=== PATIENT | male | born 1940 | race Caucasian/White ===

== ENCOUNTER 2022-07-15 15:58 | Inpatient (IN) ==
[2022-07-15] MEDS ORDERED: SODIUM CHLORIDE 0.9% 1,000 ML IV STA (16:37)
[2022-07-15 17:16] LABS: Basophils % 0.1 % (0.0-0.8); Eosinophils # 0.1 10*3/uL (0.0-0.87); Eosinophils % 0.8 % (0.00-10.9); Immature Granulocytes % 0.4 %; Immature Granulocytes Absolute 0.03 #; Lymphocytes # 1.3 10*3/uL (1.4-4.0); Lymphocytes % 17.4 % (21.2-54.2); Mean Corpuscular HGB Conc 32.5 GM/DL (32-36); Mean Corpuscular Volume 92.4 FL (87-102); Mean Platelet Volume 10.1 FL (9.6-12.0); Monocytes # 0.5 10*3/uL (0.11-0.8); Monocytes % 7.1 % (1.7-12.7); Neutrophils % 74.2 % (38.7-73.9); Platelet Count 201 T/CUMM (130-400); Red Blood Count 4.33 MC/CUMM (3.8-5.5); Red Cell Distribution Width 13.2 % (9.3-17.3); White Blood Count 7.3 T/CUMM (4-12)
[2022-07-15 17:26] LABS: INR 0.9; Partial Thromboplastin Time 27.2 SECS (23.7-32.9)
[2022-07-15 17:38] LABS: Albumin 2.1 G/DL (3.4-5.0); Bilirubin,Total 0.5 MG/DL (0.20-1.00); Calcium 8.3 MG/DL (8.5-10.1); Osmolality,Calculated 273.7 MOS/KG (273-304); Potassium 4.6 MMOL/L (3.5-5.1)
[2022-07-15 17:43] LABS: Hyaline Casts,Urine 4 /LPF (0-3); Mucus,Urine Occasional /LPF (Occasional); RBC,Urine 1 /HPF (0-4)
[2022-07-15 17:44] LABS: Bilirubin,Urine Negative (Negative); Blood, Urine Trace mg/dL (Negative); Glucose,Urine (UA) >=1000 mg/dL (Negative); Ketones,Urine Negative (Negative); Nitrite,Urine Negative (Negative); Protein,Urine 100 mg/dL (Negative); Urine Appearance Clear (Clear); Urine Color Yellow (Yellow); Urine Urobilinogen 0.2 eU/dL (<2.0)
[2022-07-15] MEDS ORDERED: MAGNESIUM SULF RIDER 2 GM/50 ML PREMIX IV ONE (18:31)
[2022-07-15] MEDS ORDERED: GLUCAGON 1 MG VIAL IM PRN (18:42)
[2022-07-15] MEDS ORDERED: ONDANSETRON 4 MG/2 ML VIAL IV PRN (18:42)
[2022-07-15] MEDS ORDERED: DEXTROSE 10% 250 ML BAG IV PRN (18:42)
[2022-07-15] MEDS ORDERED: ACETAMINOPHEN 325 MG TABLET PO PRN (18:42)
[2022-07-15 19:13] LABS: Thyroid Stimulating Hormone 1.1 uIU/ml (0.358-3.74)
[2022-07-15] MEDS ORDERED: MORPHINE 2 MG/1 ML SYRINGE IV PRN (19:48)
[2022-07-15] MEDS ORDERED: ENOXAPARIN 40 MG/0.4 ML SYRINGE SUBCUT SCH (21:00)
[2022-07-15] MEDS ORDERED: ASPIRIN EC 325 MG TABLET PO SCH (21:00)
[2022-07-15] MEDS: PRAVASTATIN 80 MG PO SCH (21:53)
[2022-07-15] MEDS: METOPROLOL TARTRATE 25 MG TABLET PO SCH (21:53)
[2022-07-16 04:48] LABS: Basophils % 0.1 % (0.0-0.8); Eosinophils # 0.1 10*3/uL (0.0-0.87); Eosinophils % 1.2 % (0.00-10.9); Hematocrit 36.4 VOL% (42.0-52.0); Immature Granulocytes % 0.4 %; Immature Granulocytes Absolute 0.03 #; Lymphocytes # 1.4 10*3/uL (1.4-4.0); Mean Corpuscular Volume 91.2 FL (87-102); Mean Platelet Volume 10.3 FL (9.6-12.0); Monocytes # 0.5 10*3/uL (0.11-0.8); Monocytes % 6.5 % (1.7-12.7); Neutrophils % 72.8 % (38.7-73.9); Platelet Count 177 T/CUMM (130-400); Red Blood Count 3.99 MC/CUMM (3.8-5.5); Red Cell Distribution Width 13.1 % (9.3-17.3); White Blood Count 7.6 T/CUMM (4-12)
[2022-07-16 05:10] LABS: Alanine Aminotransferase 30 U/L (16-61); Albumin 2.9 G/DL (3.4-5.0); Alkaline Phosphatase 77 U/L (45-117); Aspartate Amino Transferase 16 U/L (0-37); Bilirubin,Total < 0.39 MG/DL (0.20-1.00); Blood Urea Nitrogen 60 MG/DL (7-18); Calcium 8.2 MG/DL (8.5-10.1); Carbon Dioxide 22 MMOL/L (21-32); Chloride 109 MMOL/L (98-107); Cholesterol 99 MG/DL (50-200); Glucose 197 MG/DL (74-106); HDL Cholesterol 40 MG/DL (40-60); Osmolality,Calculated 298.5 MOS/KG (273-304); Potassium 4.3 MMOL/L (3.5-5.1); Risk Ratio 2.48; Sodium 139 MMOL/L (136-145); Total Protein 5.6 G/DL (6.4-8.2); Triglycerides 214 MG/DL (2-150); VLDL Cholesterol 42.8 MG/DL
[2022-07-16] MEDS: LEVOTHYROXINE 125 MCG TABLET PO SCH (06:20)
[2022-07-16] MEDS ORDERED: FUROSEMIDE 40 MG TABLET PO PRN (07:15)
[2022-07-16] MEDS ORDERED: lisinopriL 20 MG TABLET PO SCH (09:00)
[2022-07-16] MEDS ORDERED: NON-FORMULARY MEDICATION (Omeprazole 20 mg Capsule,Delayed Release(Dr/Ec)) PO SCH (09:00)
[2022-07-16] MEDS: ASPIRIN EC 81 MG TABLET PO SCH (09:28)
[2022-07-16] MEDS: MAGNESIUM OXIDE 400 MG TABLET PO SCH (09:29)
[2022-07-16] MEDS: PANTOPRAZOLE 40 MG TABLET PO SCH (09:29)
[2022-07-16] MEDS: CALCIUM (CARBONATE) 500 MG TABLET PO SCH (09:29)
[2022-07-16] MEDS: CYANOCOBALAMIN 500 MCG TABLET PO SCH (09:29)
[2022-07-16] MEDS: FLUoxetine 20 MG CAPSULE PO SCH (09:29)
[2022-07-16] MEDS: ISOSORBIDE MONONITRATE 30 MG TABLET PO SCH (09:30)
[2022-07-16] MEDS: METOPROLOL TARTRATE 25 MG TABLET PO SCH (09:30)
[2022-07-16] MEDS: FOLIC ACID 1 MG TABLET PO SCH (09:30)
[2022-07-16] MEDS: POTASSIUM CHLORIDE 20 MEQ TABLET PO SCH (09:30)
[2022-07-16] MEDS: ASCORBIC ACID 500 MG TABLET PO SCH (09:30)
[2022-07-16] MEDS: FUROSEMIDE 40 MG/4 ML VIAL IV SCH (09:32)
[2022-07-16] MEDS: MULTIVITAMIN (CENTRUM) TABLET PO SCH (09:40)
[2022-07-16] MEDS: FELODIPINE 5 MG TABLET PO SCH (09:40)
[2022-07-16] MEDS: NON-FORMULARY MEDICATION (Lutein 20 mg Tablet) PO SCH (09:41)
[2022-07-16] MEDS: GLIMEPIRIDE 4 MG TABLET PO SCH (09:41)
[2022-07-16] MEDS: MULTIVITAMIN (OCUVITE) TABLET PO SCH (09:41)
[2022-07-16] MEDS ORDERED: AMIODARONE INJ 450 MG in DEXTROSE 5% 241 ML IV SCH ×2 (10:00→16:00)
[2022-07-16] MEDS ORDERED: AMIODARONE 200 MG TABLET PO SCH (10:00)
[2022-07-16] MEDS ORDERED: DEXTROSE 50% 25 GM/50 ML VIAL IV PRN (10:03)
[2022-07-16] MEDS ORDERED: GLUCAGON 1 MG VIAL IM PRN (10:03)
[2022-07-16] MEDS: PRAVASTATIN 80 MG PO SCH (20:28)
[2022-07-16] MEDS ORDERED: APIXABAN 5 MG TABLET PO SCH (21:00)
[2022-07-16] MEDS ORDERED: MELATONIN 3 MG TABLET PO SCH (21:00)
[2022-07-17 05:09] LABS: Basophils % 0.2 % (0.0-0.8); Eosinophils # 0.1 10*3/uL (0.0-0.87); Hematocrit 35.1 VOL% (42.0-52.0); Hemoglobin 11.7 GM/DL (14.0-18.0); Lymphocytes # 1.9 10*3/uL (1.4-4.0); Lymphocytes % 29.9 % (21.2-54.2); Mean Corpuscular HGB Conc 33.3 GM/DL (32-36); Mean Corpuscular Volume 91.4 FL (87-102); Mean Platelet Volume 10.5 FL (9.6-12.0); Monocytes # 0.7 10*3/uL (0.11-0.8); Monocytes % 10.3 % (1.7-12.7); Neutrophils % 57.1 % (38.7-73.9); Platelet Count 169 T/CUMM (130-400); Red Blood Count 3.84 MC/CUMM (3.8-5.5); Red Cell Distribution Width 13.4 % (9.3-17.3); White Blood Count 6.5 T/CUMM (4-12)
[2022-07-17 05:23] LABS: Calcium 8.2 MG/DL (8.5-10.1); Osmolality,Calculated 299.4 MOS/KG (273-304); Potassium 4.4 MMOL/L (3.5-5.1)
[2022-07-17] MEDS: LEVOTHYROXINE 125 MCG TABLET PO SCH (06:22)
[2022-07-17] MEDS ORDERED: AMIODARONE 200 MG TABLET PO SCH (09:00)
[2022-07-17] MEDS ORDERED: lisinopriL 20 MG TABLET PO SCH ×2 (09:00)
[2022-07-17] MEDS: GLIMEPIRIDE 4 MG TABLET PO SCH (09:28)
[2022-07-17] MEDS: POTASSIUM CHLORIDE 20 MEQ TABLET PO SCH (09:28)
[2022-07-17] MEDS: MULTIVITAMIN (OCUVITE) TABLET PO SCH (09:28)
[2022-07-17] MEDS: MULTIVITAMIN (CENTRUM) TABLET PO SCH (09:28)
[2022-07-17] MEDS: ASPIRIN EC 81 MG TABLET PO SCH (09:28)
[2022-07-17] MEDS: FELODIPINE 5 MG TABLET PO SCH (09:29)
[2022-07-17] MEDS: CALCIUM (CARBONATE) 500 MG TABLET PO SCH (09:29)
[2022-07-17] MEDS: FOLIC ACID 1 MG TABLET PO SCH (09:29)
[2022-07-17] MEDS: PANTOPRAZOLE 40 MG TABLET PO SCH (09:29)
[2022-07-17] MEDS: ISOSORBIDE MONONITRATE 30 MG TABLET PO SCH (09:30)
[2022-07-17] MEDS: MAGNESIUM OXIDE 400 MG TABLET PO SCH (09:30)
[2022-07-17] MEDS: CYANOCOBALAMIN 500 MCG TABLET PO SCH (09:30)
[2022-07-17] MEDS: FLUoxetine 20 MG CAPSULE PO SCH (09:30)
[2022-07-17] MEDS: ASCORBIC ACID 500 MG TABLET PO SCH (09:31)
[2022-07-17] MEDS: FUROSEMIDE 40 MG/4 ML VIAL IV SCH (09:32)
[2022-07-17] MEDS: NON-FORMULARY MEDICATION (Lutein 20 mg Tablet) PO SCH (09:33)
[2022-07-17 09:48] VITALS: BP 180/58
[2022-07-17] MEDS ORDERED: TERAZOSIN 1 MG CAPSULE PO SCH (21:00)
== END 2022-07-17 11:56 | disposition home or self-care (01) | DRG 309 ==
LOC: N.ED 15:58 → N.EDINP 18:42 → N.TELES 20:09
PROVIDERS: ADMIT Internal Medicine Geriatric Medicine; ATTEND Internal Medicine Geriatric Medicine

== ENCOUNTER 2022-09-24 06:03 | Observation (INO) ==
[~2022-09-24 06:03] MED LIST: DIAZEPAM 5 MG TABLET PO ONE; ceFAZolin 1,000 MG VIAL IRRIG ONE; diphenhydrAMINE CAP 50 MG CAPSULE PO ONE
[2022-09-24 07:03] LABS: Eosinophils # 0.3 10*3/uL (0.0-0.87); Eosinophils % 4.5 % (0.00-10.9); Hematocrit 32.4 VOL% (42.0-52.0); Hemoglobin 10.3 GM/DL (14.0-18.0); Immature Granulocytes % 0.6 %; Immature Granulocytes Absolute 0.04 #; Lymphocytes # 1.1 10*3/uL (1.4-4.0); Lymphocytes % 16.5 % (21.2-54.2); Mean Corpuscular HGB Conc 31.8 GM/DL (32-36); Mean Corpuscular Volume 95.6 FL (87-102); Mean Platelet Volume 9.4 FL (9.6-12.0); Monocytes # 0.6 10*3/uL (0.11-0.8); Monocytes % 8.9 % (1.7-12.7); Neutrophils % 69.5 % (38.7-73.9); Platelet Count 208 T/CUMM (130-400); Red Blood Count 3.39 MC/CUMM (3.8-5.5); Red Cell Distribution Width 13.4 % (9.3-17.3); White Blood Count 6.4 T/CUMM (4-12)
[2022-09-24 07:18] LABS: Osmolality,Calculated 288.7 MOS/KG (273-304); Potassium 4.3 MMOL/L (3.5-5.1)
[2022-09-24] MEDS ORDERED: DIAZEPAM 5 MG TABLET ONE (07:28)
[2022-09-24] MEDS ORDERED: diphenhydrAMINE CAP 50 MG CAPSULE ONE (07:28)
[2022-09-24] MEDS ORDERED: MIDAZOLAM 2 MG/2 ML VIAL ONE ×4 (09:42→10:53)
[2022-09-24] MEDS ORDERED: HEPARIN/NACL 0.9% 2 UNITS/ML 1,000 UNIT/500 ML BAG IV ONE (09:42)
[2022-09-24] MEDS ORDERED: ceFAZolin 1,000 MG VIAL ONE ×2 (09:43)
[2022-09-24] MEDS ORDERED: fentaNYL 100 MCG/2 ML VIAL ONE ×2 (09:43→10:53)
[2022-09-24] MEDS ORDERED: diphenhydrAMINE 50 MG/1 ML VIAL ONE (10:02)
[2022-09-24] MEDS ORDERED: TISSUE ADHESIVE 1 EACH APPLICATOR TOP ONE (11:00)
[2022-09-24] MEDS ORDERED: ONDANSETRON 4 MG/2 ML VIAL IV PRN (11:17)
[2022-09-24] MEDS ORDERED: ZALEPLON 5 MG CAPSULE PO PRN (11:17)
[2022-09-24] MEDS ORDERED: ACETAMINOPHEN 325 MG TABLET PO PRN (11:17)
[2022-09-24] MEDS ORDERED: METOPROLOL TARTRATE 25 MG TABLET PO ONE (12:46)
[2022-09-24] MEDS: hydrALAZINE 20 MG/1 ML VIAL IV PRN (21:13)
[2022-09-24] MEDS: ASPIRIN EC 325 MG TABLET PO SCH (21:14)
[2022-09-24] MEDS: TERAZOSIN 1 MG CAPSULE PO SCH (21:14)
[2022-09-24] MEDS: FLUoxetine 20 MG CAPSULE PO SCH (21:14)
[2022-09-24] MEDS: MELATONIN 3 MG TABLET PO SCH (21:14)
[2022-09-24] MEDS: METOPROLOL TARTRATE 25 MG TABLET PO SCH (21:15)
[2022-09-24] MEDS: PRAVASTATIN 80 MG PO SCH (21:15)
[2022-09-25 05:22] LABS: Basophils % 0.2 % (0.0-0.8); Eosinophils # 0.3 10*3/uL (0.0-0.87); Eosinophils % 4.2 % (0.00-10.9); Hematocrit 30.6 VOL% (42.0-52.0); Hemoglobin 9.8 GM/DL (14.0-18.0); Immature Granulocytes % 0.3 %; Immature Granulocytes Absolute 0.02 #; Lymphocytes # 1.3 10*3/uL (1.4-4.0); Lymphocytes % 20.6 % (21.2-54.2); Mean Corpuscular Volume 93.6 FL (87-102); Mean Platelet Volume 9.8 FL (9.6-12.0); Monocytes # 0.7 10*3/uL (0.11-0.8); Monocytes % 10.9 % (1.7-12.7); Neutrophils % 63.8 % (38.7-73.9); Platelet Count 203 T/CUMM (130-400); Red Blood Count 3.27 MC/CUMM (3.8-5.5); Red Cell Distribution Width 13.5 % (9.3-17.3); White Blood Count 6.2 T/CUMM (4-12)
[2022-09-25] MEDS: LEVOTHYROXINE 125 MCG TABLET PO SCH (05:25)
[2022-09-25 05:36] LABS: Calcium 8.2 MG/DL (8.5-10.1); Osmolality,Calculated 289.5 MOS/KG (273-304); Potassium 4.1 MMOL/L (3.5-5.1)
[2022-09-25] MEDS ORDERED: PIOGLITAZONE 15 MG TABLET PO SCH (07:30)
[2022-09-25] MEDS: ISOSORBIDE MONONITRATE 30 MG TABLET PO SCH (08:31)
[2022-09-25] MEDS: PIOGLITAZONE 15 MG TABLET PO SCH (08:31)
[2022-09-25] MEDS: MULTIVITAMIN (CENTRUM) TABLET PO SCH (08:32)
[2022-09-25] MEDS: CHOLECALCIFEROL 1,000 UNIT TABLET PO SCH (08:32)
[2022-09-25] MEDS: CALCIUM (CARBONATE)/VITAMIN D 600 MG-400 UNIT TABLET PO SCH (08:32)
[2022-09-25] MEDS: MAGNESIUM OXIDE 400 MG TABLET PO SCH (08:32)
[2022-09-25] MEDS: CYANOCOBALAMIN 500 MCG TABLET PO SCH (08:32)
[2022-09-25] MEDS: MULTIVITAMIN (OCUVITE) TABLET PO SCH (08:32)
[2022-09-25] MEDS: SPIRONOLACTONE 25 MG TABLET PO SCH (08:32)
[2022-09-25] MEDS: ASCORBIC ACID 500 MG TABLET PO SCH (08:33)
[2022-09-25] MEDS: TORSEMIDE 20 MG TABLET PO SCH (08:33)
[2022-09-25] MEDS: METOPROLOL TARTRATE 25 MG TABLET PO SCH ×2 (08:33→20:50)
[2022-09-25] MEDS: FOLIC ACID 1 MG TABLET PO SCH (08:33)
[2022-09-25] MEDS: POTASSIUM CHLORIDE 20 MEQ TABLET PO SCH (08:33)
[2022-09-25] MEDS: PANTOPRAZOLE 40 MG TABLET PO SCH (08:33)
[2022-09-25] MEDS ORDERED: lisinopriL 20 MG TABLET PO SCH (09:00)
[2022-09-25] MEDS ORDERED: FELODIPINE 2.5 MG TABLET PO SCH (09:00)
[2022-09-25] MEDS: NON-FORMULARY MEDICATION (Lutein 20 mg Tablet) PO SCH (09:04)
[2022-09-25] MEDS: CETIRIZINE 10 MG TABLET PO SCH (09:21)
[2022-09-25] MEDS: TERAZOSIN 1 MG CAPSULE PO SCH (20:49)
[2022-09-25] MEDS: ASPIRIN EC 325 MG TABLET PO SCH (20:49)
[2022-09-25] MEDS: MELATONIN 3 MG TABLET PO SCH (20:49)
[2022-09-25] MEDS: FLUoxetine 20 MG CAPSULE PO SCH (20:49)
[2022-09-25] MEDS: hydrALAZINE 20 MG/1 ML VIAL IV PRN (20:50)
[2022-09-25] MEDS: PRAVASTATIN 80 MG PO SCH (20:52)
[2022-09-26] MEDS: LEVOTHYROXINE 125 MCG TABLET PO SCH (05:46)
[2022-09-26 06:33] LABS: Calcium 8.1 MG/DL (8.5-10.1); Osmolality,Calculated 287.7 MOS/KG (273-304); Potassium 4.1 MMOL/L (3.5-5.1)
[2022-09-26] MEDS: NON-FORMULARY MEDICATION (Lutein 20 mg Tablet) PO SCH (08:12)
[2022-09-26] MEDS: MAGNESIUM OXIDE 400 MG TABLET PO SCH (08:50)
[2022-09-26] MEDS: PANTOPRAZOLE 40 MG TABLET PO SCH (08:50)
[2022-09-26] MEDS: MULTIVITAMIN (OCUVITE) TABLET PO SCH (08:50)
[2022-09-26] MEDS: PIOGLITAZONE 15 MG TABLET PO SCH (08:50)
[2022-09-26] MEDS: MULTIVITAMIN (CENTRUM) TABLET PO SCH (08:50)
[2022-09-26] MEDS: POTASSIUM CHLORIDE 20 MEQ TABLET PO SCH (08:51)
[2022-09-26] MEDS: SPIRONOLACTONE 25 MG TABLET PO SCH (08:51)
[2022-09-26] MEDS: lisinopriL 20 MG TABLET PO SCH (08:51)
[2022-09-26] MEDS: ASCORBIC ACID 500 MG TABLET PO SCH (08:52)
[2022-09-26] MEDS: FOLIC ACID 1 MG TABLET PO SCH (08:52)
[2022-09-26] MEDS: CETIRIZINE 10 MG TABLET PO SCH (08:52)
[2022-09-26] MEDS: METOPROLOL TARTRATE 25 MG TABLET PO SCH ×2 (08:52→20:39)
[2022-09-26] MEDS: CYANOCOBALAMIN 500 MCG TABLET PO SCH (08:52)
[2022-09-26] MEDS: CHOLECALCIFEROL 1,000 UNIT TABLET PO SCH (08:52)
[2022-09-26] MEDS: ISOSORBIDE MONONITRATE 30 MG TABLET PO SCH (08:52)
[2022-09-26] MEDS: CALCIUM (CARBONATE)/VITAMIN D 600 MG-400 UNIT TABLET PO SCH (08:57)
[2022-09-26] MEDS: TORSEMIDE 20 MG TABLET PO SCH (08:57)
[2022-09-26] MEDS: FELODIPINE 2.5 MG TABLET PO SCH (13:00)
[2022-09-26] MEDS: hydrALAZINE 20 MG/1 ML VIAL IV PRN (15:13)
[2022-09-26] MEDS: PRAVASTATIN 80 MG PO SCH (20:37)
[2022-09-26] MEDS: ASPIRIN EC 325 MG TABLET PO SCH (20:38)
[2022-09-26] MEDS: MELATONIN 3 MG TABLET PO SCH (20:39)
[2022-09-26] MEDS: FLUoxetine 20 MG CAPSULE PO SCH (20:39)
[2022-09-26] MEDS: TERAZOSIN 1 MG CAPSULE PO SCH (20:39)
[2022-09-27] MEDS: LEVOTHYROXINE 125 MCG TABLET PO SCH ×2 (05:00→05:02)
[2022-09-27 05:01] LABS: Calcium 8.1 MG/DL (8.5-10.1); Osmolality,Calculated 293.4 MOS/KG (273-304); Potassium 4.1 MMOL/L (3.5-5.1)
[2022-09-27] MEDS: FELODIPINE 2.5 MG TABLET PO SCH (09:02)
[2022-09-27] MEDS: MAGNESIUM OXIDE 400 MG TABLET PO SCH (09:03)
[2022-09-27] MEDS: MULTIVITAMIN (CENTRUM) TABLET PO SCH (09:03)
[2022-09-27] MEDS: ISOSORBIDE MONONITRATE 30 MG TABLET PO SCH (09:03)
[2022-09-27] MEDS: PIOGLITAZONE 15 MG TABLET PO SCH (09:03)
[2022-09-27] MEDS: MULTIVITAMIN (OCUVITE) TABLET PO SCH (09:03)
[2022-09-27] MEDS: PANTOPRAZOLE 40 MG TABLET PO SCH (09:04)
[2022-09-27] MEDS: SPIRONOLACTONE 25 MG TABLET PO SCH (09:04)
[2022-09-27] MEDS: CETIRIZINE 10 MG TABLET PO SCH (09:04)
[2022-09-27] MEDS: FOLIC ACID 1 MG TABLET PO SCH (09:04)
[2022-09-27] MEDS: POTASSIUM CHLORIDE 20 MEQ TABLET PO SCH (09:04)
[2022-09-27] MEDS: lisinopriL 20 MG TABLET PO SCH (09:04)
[2022-09-27] MEDS: TORSEMIDE 20 MG TABLET PO SCH (09:04)
[2022-09-27] MEDS: ASCORBIC ACID 500 MG TABLET PO SCH (09:05)
[2022-09-27] MEDS: CHOLECALCIFEROL 1,000 UNIT TABLET PO SCH (09:05)
[2022-09-27] MEDS: CYANOCOBALAMIN 500 MCG TABLET PO SCH (09:05)
[2022-09-27] MEDS: METOPROLOL TARTRATE 25 MG TABLET PO SCH ×2 (09:05→20:21)
[2022-09-27] MEDS: NON-FORMULARY MEDICATION (Lutein 20 mg Tablet) PO SCH (09:06)
[2022-09-27] MEDS: CALCIUM (CARBONATE)/VITAMIN D 600 MG-400 UNIT TABLET PO SCH (09:14)
[2022-09-27] MEDS: MELATONIN 3 MG TABLET PO SCH (20:21)
[2022-09-27] MEDS: FLUoxetine 20 MG CAPSULE PO SCH (20:21)
[2022-09-27] MEDS: TERAZOSIN 1 MG CAPSULE PO SCH (20:21)
[2022-09-27] MEDS: ASPIRIN EC 325 MG TABLET PO SCH (20:21)
[2022-09-27] MEDS: PRAVASTATIN 80 MG PO SCH (20:22)
[2022-09-28] MEDS: LEVOTHYROXINE 125 MCG TABLET PO SCH (05:00)
[2022-09-28 06:30] LABS: Calcium 8.2 MG/DL (8.5-10.1); Osmolality,Calculated 292.5 MOS/KG (273-304); Potassium 4.6 MMOL/L (3.5-5.1)
[2022-09-28] MEDS: CALCIUM (CARBONATE)/VITAMIN D 600 MG-400 UNIT TABLET PO SCH (09:41)
[2022-09-28] MEDS: FOLIC ACID 1 MG TABLET PO SCH (09:41)
[2022-09-28] MEDS: TORSEMIDE 20 MG TABLET PO SCH (09:41)
[2022-09-28] MEDS: METOPROLOL TARTRATE 25 MG TABLET PO SCH (09:41)
[2022-09-28] MEDS: ISOSORBIDE MONONITRATE 30 MG TABLET PO SCH (09:41)
[2022-09-28] MEDS: lisinopriL 20 MG TABLET PO SCH (09:41)
[2022-09-28] MEDS: CETIRIZINE 10 MG TABLET PO SCH (09:41)
[2022-09-28] MEDS: MAGNESIUM OXIDE 400 MG TABLET PO SCH (09:41)
[2022-09-28] MEDS: CYANOCOBALAMIN 500 MCG TABLET PO SCH (09:41)
[2022-09-28] MEDS: CHOLECALCIFEROL 1,000 UNIT TABLET PO SCH (09:50)
[2022-09-28] MEDS: MULTIVITAMIN (CENTRUM) TABLET PO SCH (09:50)
[2022-09-28] MEDS: NON-FORMULARY MEDICATION (Lutein 20 mg Tablet) PO SCH (09:50)
[2022-09-28] MEDS: PANTOPRAZOLE 40 MG TABLET PO SCH (09:50)
[2022-09-28] MEDS: SPIRONOLACTONE 25 MG TABLET PO SCH (09:50)
[2022-09-28] MEDS: POTASSIUM CHLORIDE 20 MEQ TABLET PO SCH (09:50)
[2022-09-28] MEDS: MULTIVITAMIN (OCUVITE) TABLET PO SCH (09:50)
[2022-09-28] MEDS: ASCORBIC ACID 500 MG TABLET PO SCH (09:50)
[2022-09-28] MEDS: PIOGLITAZONE 15 MG TABLET PO SCH (09:50)
[2022-09-28] MEDS: FELODIPINE 2.5 MG TABLET PO SCH (13:29)
[2022-09-28] MEDS ORDERED: TUBERCULIN SKIN TEST 0.1 ML SYRINGE INTRADERM ONE (14:00)
[2022-09-28] MEDS: FLUoxetine 20 MG CAPSULE PO SCH (22:09)
[2022-09-28] MEDS: TERAZOSIN 1 MG CAPSULE PO SCH (22:09)
[2022-09-28] MEDS: MELATONIN 3 MG TABLET PO SCH (22:09)
[2022-09-28] MEDS: ASPIRIN EC 325 MG TABLET PO SCH (22:09)
[2022-09-28] MEDS: PRAVASTATIN 80 MG PO SCH (22:10)
[2022-09-29] MEDS: hydrALAZINE 20 MG/1 ML VIAL IV PRN (05:19)
[2022-09-29] MEDS: LEVOTHYROXINE 125 MCG TABLET PO SCH (07:25)
[2022-09-29] MEDS: NEBIVOLOL 10 MG TABLET PO SCH (10:19)
[2022-09-29] MEDS: MAGNESIUM OXIDE 400 MG TABLET PO SCH (10:20)
[2022-09-29] MEDS: PIOGLITAZONE 15 MG TABLET PO SCH (10:20)
[2022-09-29] MEDS: CYANOCOBALAMIN 500 MCG TABLET PO SCH (10:20)
[2022-09-29] MEDS: CALCIUM (CARBONATE)/VITAMIN D 600 MG-400 UNIT TABLET PO SCH (10:20)
[2022-09-29] MEDS: MULTIVITAMIN (CENTRUM) TABLET PO SCH (10:21)
[2022-09-29] MEDS: MULTIVITAMIN (OCUVITE) TABLET PO SCH (10:21)
[2022-09-29] MEDS: FELODIPINE 2.5 MG TABLET PO SCH (10:21)
[2022-09-29] MEDS: lisinopriL 20 MG TABLET PO SCH (10:21)
[2022-09-29] MEDS: ISOSORBIDE MONONITRATE 30 MG TABLET PO SCH (10:21)
[2022-09-29] MEDS: PANTOPRAZOLE 40 MG TABLET PO SCH (10:21)
[2022-09-29] MEDS: CETIRIZINE 10 MG TABLET PO SCH (10:21)
[2022-09-29] MEDS: FOLIC ACID 1 MG TABLET PO SCH (10:22)
[2022-09-29] MEDS: ASCORBIC ACID 500 MG TABLET PO SCH (10:22)
[2022-09-29] MEDS: SPIRONOLACTONE 25 MG TABLET PO SCH (10:22)
[2022-09-29] MEDS: CHOLECALCIFEROL 1,000 UNIT TABLET PO SCH (10:22)
[2022-09-29] MEDS: POTASSIUM CHLORIDE 20 MEQ TABLET PO SCH (10:22)
[2022-09-29] MEDS: TORSEMIDE 20 MG TABLET PO SCH (10:22)
[2022-09-29] MEDS: NON-FORMULARY MEDICATION (Lutein 20 mg Tablet) PO SCH (10:23)
[2022-09-29] MEDS ORDERED: TUBERCULIN SKIN TEST 0.1 ML SYRINGE INTRADERM ONE (13:48)
[2022-09-29] MEDS: ASPIRIN EC 325 MG TABLET PO SCH (22:16)
[2022-09-29] MEDS: MELATONIN 3 MG TABLET PO SCH (22:16)
[2022-09-29] MEDS: TERAZOSIN 1 MG CAPSULE PO SCH (22:16)
[2022-09-29] MEDS: FLUoxetine 20 MG CAPSULE PO SCH (22:17)
[2022-09-29] MEDS: PRAVASTATIN 80 MG PO SCH (22:18)
[2022-09-30] MEDS: LEVOTHYROXINE 125 MCG TABLET PO SCH (05:36)
[2022-09-30 06:50] LABS: Calcium 8.2 MG/DL (8.5-10.1); Osmolality,Calculated 285.2 MOS/KG (273-304); Potassium 4.8 MMOL/L (3.5-5.1)
[2022-09-30] MEDS: CHOLECALCIFEROL 1,000 UNIT TABLET PO SCH (08:57)
[2022-09-30] MEDS: CYANOCOBALAMIN 500 MCG TABLET PO SCH (08:57)
[2022-09-30] MEDS: ASCORBIC ACID 500 MG TABLET PO SCH (08:57)
[2022-09-30] MEDS: POTASSIUM CHLORIDE 20 MEQ TABLET PO SCH (08:57)
[2022-09-30] MEDS: lisinopriL 20 MG TABLET PO SCH (08:57)
[2022-09-30] MEDS: NEBIVOLOL 10 MG TABLET PO SCH (08:58)
[2022-09-30] MEDS: MAGNESIUM OXIDE 400 MG TABLET PO SCH (08:58)
[2022-09-30] MEDS: PIOGLITAZONE 15 MG TABLET PO SCH (08:58)
[2022-09-30] MEDS: ISOSORBIDE MONONITRATE 30 MG TABLET PO SCH (08:58)
[2022-09-30] MEDS: MULTIVITAMIN (OCUVITE) TABLET PO SCH (08:58)
[2022-09-30] MEDS: MULTIVITAMIN (CENTRUM) TABLET PO SCH (08:58)
[2022-09-30] MEDS: NON-FORMULARY MEDICATION (Lutein 20 mg Tablet) PO SCH (08:59)
[2022-09-30] MEDS: FOLIC ACID 1 MG TABLET PO SCH (08:59)
[2022-09-30] MEDS: CETIRIZINE 10 MG TABLET PO SCH (08:59)
[2022-09-30] MEDS: PANTOPRAZOLE 40 MG TABLET PO SCH (08:59)
[2022-09-30] MEDS: CALCIUM (CARBONATE)/VITAMIN D 600 MG-400 UNIT TABLET PO SCH (09:05)
[2022-09-30] MEDS: TORSEMIDE 20 MG TABLET PO SCH (09:05)
[2022-09-30 09:06] VITALS: BP 171/67
[2022-09-30] MEDS: FELODIPINE 2.5 MG TABLET PO SCH (09:29)
== END 2022-09-30 10:46 ==
LOC: N.CL 06:03 → N.TELES 06:03 → N.CL 06:07 → N.TELES 12:28
PROVIDERS: ADMIT Internal Medicine Cardiovascular Disease; ATTEND Internal Medicine Cardiovascular Disease